=== PATIENT | male | born 1945 | race Caucasian/White ===

== ENCOUNTER 2017-07-31 20:04 | Emergency (ER) | payer OTHER, BC ==
--- NOTE | 2017-07-31 20:13 | PDOC ---
History of Present Illness - General History Source: Patient Exam Limitations: No Limitations - History of Present Illness Initial Comments: 07/31/17 21:01 The patient is a 71 year old male with no significant PMH who presents to the emergency department with severe back pain for 1 day. The patient reports that he was concerned for blood clot in his back because he had a PE in his eye 2 years ago . He states that he is therapeutic on his coumadin. The patient reports that he went for a walk last night and went home where he reached for something and sat down the patient reports that he felt an onset of pain in his back. The patient reports that he took tylenol for pain with no apparent relief. The patient also reports trying other pain relieving methods with no relief. The patient denies chest pain, shortness of breath, headache and dizziness. He fever, chills, nausea, vomit, diarrhea, constipation or urinary symptoms. The patient denies any other complaints. PAST MEDICAL HISTORY: PE in eye (2 years ago) PAST SURGICAL HISTORY: no significant history FAMILY HISTORY: no pertinent history SOCIAL HISTORY: Pt lives with family and is employed. MEDICATIONS: reviewed ALLERGIES: As per nursing notes General: No fevers or chills, no weakness, no weight loss HEENT: No change in vision. No sore throat,. No ear pain CardioVascular: No chest pain or shortness of breath Respiratory:No cough, or wheezing. Gastrointestinal: no nausea, vomiting, diarrhea or constipation, No rectal bleeding Genitourinary: No dysuria, hematuria, or frequency Musculoskeletal: (+)severe back pain, No joint pain or swelling Neurologic: No headache, vertigo, dizziness or loss of consciousness Psychiatric: nor depression Skin: No rashes or easy bruising Endocrine: no increased thirst or abnormal weight change Allergic: no skin or latex allergy All other systems reviewed and normal General: Well-nourished well-developed individual, no acute distress HEENT: Throat: Normal, tonsils normal, no erythema or exudate Neck: Supple, no meningeal signs, no lymphadenopathy Eyes::Pupils equal reactive and round, extraocular motion intact Chest: Nontender to palpation Cardiac: S1-S2 normal, regular rate and rhythm, no murmurs rubs or gallops Respiratory: (+)decreased breath sounds due to pain with respiration.Lungs clear to auscultation bilateral Abdomen: Soft, nondistended, normal bowel sounds, nontender to palpation diffusely Extremities: (+)pain reproduced on palpation and movement. Warm, dry, no cyanosis, clubbing, or edema Skin: No rashes Neuro: Alert and oriented x3, nonfocal exam, grossly intact, normal gait Psych: Normal mood and affect <Amada Caal - Last Filed: 07/31/17 21:01> - General History Source: Patient Exam Limitations: No Limitations - History of Present Illness Initial Comments: A portion of this note was documented by scribe services under my direction. I have reviewed the details of the note, within reason, and agree with the documentation. The case summary and management plan written by me. Assessment and plan: This is 71-year-old male who has a history of hypercoagulability who is on home and that is therapeutic as of yesterday. Patient comes in complaining of pleuritic type chest pain. Patient said it began when he stretched to call an object toward him and he felt instant onset of the pain. Patient said it is worse with respiration worse with movement and worse with using those muscles. This most likely is skeletal muscular however will get a d-dimer to rule out PE. D-dimer was less than 200 which is normal Patient given Percocet for the pain. Patient discharged home will follow-up with his primary care doctor. <Dino Bryant I - Last Filed: 07/31/17 21:54> - General Chief Complaint: Pain, Acute Stated Complaint: RIGHT UPPER BACK PAIN Time Seen by Provider: 07/31/17 20:12 Past History <Amada Caal - Last Filed: 07/31/17 21:01> - Immunization History Immunization Up to Date: Yes - Suicide/Smoking/Psychosocial Hx Smoking History: Never smoked Have you smoked in the past 12 months: No Hx Alcohol Use: No Drug/Substance Use Hx: No Substance Use Type: None <Dino Bryant I - Last Filed: 07/31/17 21:54> - Past Medical History Allergies/Adverse Reactions: Allergies Allergy/AdvReac Type Severity Reaction Status Date / Time No Known Allergies Allergy Verified 03/27/15 23:28 Home Medications: Ambulatory Orders Diazepam [Valium] 5 mg PO Q8H 07/31/17 Metoprolol Tartrate [Lopressor -] 25 mg PO DAILY 07/31/17 Rosuvastatin Calcium [Crestor] 10 mg PO DAILY 07/31/17 Warfarin Sodium [Coumadin] 2 mg PO DAILY 07/31/17 *Physical Exam - Vital Signs Last Vital Signs Temp Pulse Resp BP Pulse Ox 98.5 F 70 18 136/95 96 07/31/17 20:22 07/31/17 20:22 07/31/17 20:22 07/31/17 20:22 07/31/17 20:22 <Amada Caal - Last Filed: 07/31/17 21:01> ED Treatment Course - LABORATORY CBC & Chemistry Diagram: 07/31/17 20:20 - ADDITIONAL ORDERS Additional order review: Laboratory Results 07/31/17 20:20 Sodium 135 L Potassium 4.2 Chloride 104 Carbon Dioxide 26 Anion Gap 5 L BUN 26 H Creatinine 1.3 Random Glucose 107 H Calcium 9.0 <Amada Caal - Last Filed: 07/31/17 21:01> - LABORATORY CBC & Chemistry Diagram: 07/31/17 20:20 <Dino Bryant I - Last Filed: 07/31/17 21:54> *DC/Admit/Observation/Transfer - Attestations Scribe Attestion: 07/31/17 21:01 Documentation prepared by Amada Cala, acting as medical and scientific illustrator for Dino Bryant MD. <Amada Caal - Last Filed: 07/31/17 21:01> - Discharge Dispostion Decision to Admit order: No <Dino Bryant I - Last Filed: 07/31/17 21:54> Diagnosis at time of Disposition: Upper back strain Qualifiers: Encounter type: initial encounter Qualified Code(s): S29.012A - Strain of muscle and tendon of back wall of thorax, initial encounter - Discharge Dispostion Disposition: HOME Condition at time of disposition: Stable - Referrals Referrals: John Martínez MD [Primary Care Provider] - - Patient Instructions Additional Instructions: For the pain get a lidocaine patch such as a salon possible that is over-the- counter and apply to the area in addition to taking the Tylenol. Return to the emergency department immediately with ANY new, persistent or worsening symptoms. Continue any medications as previously prescribed by your physician. You should follow up with your primary doctor as soon as possible regarding today's emergency department visit. . Please make sure your doctor reviews the results of your emergency evaluation. Thank you for coming to the Emergency Department today for your care. It was a pleasure to see you today. Please note that your evaluation is INCOMPLETE until you follow-up with your doctor. - Post Discharge Activity
[2017-07-31 20:28] VITALS: BP 136/95; PULSE 70; TEMP 98.5; BMI 30.4
[2017-07-31 20:47] LABS: ANION GAP 5 (8-16); BLOOD UREA NITROGEN 26 mg/dl (7-18); CHLORIDE 104 mmol/L (98-107); CO2 26 mmol/L (22-28); CREATININE 1.3 mg/dl (0.6-1.3); GLUCOSE,RANDOM 107 mg/dl (74-106); POTASSIUM 4.2 mmol/L (3.5-5.1); SODIUM 135 mmol/L (136-145)
== END 2017-07-31 21:57 | disposition home or self-care (01) ==
LOC: FER 20:04
DX: S29.012A Strain of muscle and tendon of back wall of thorax, initial encounter (principal); X58.XXXA Exposure to other specified factors, initial encounter; Y93.89 Activity, other specified; Y92.9 Unspecified place or not applicable; Z79.01 Long term (current) use of anticoagulants; Z86.711 Personal history of pulmonary embolism
CPT/HCPCS: 36415; 80048; 85379; 99281-25

== ENCOUNTER 2023-11-12 15:12 | Emergency (ER) | payer OTHER, BC ==
[2023-11-12 15:41] VITALS: BP 116/82; PULSE 64; RESP 18; TEMP 98.2; BMI 28.2
== END 2023-11-12 18:45 | disposition short-term general hospital (02) ==
LOC: FER 15:12
DX: H53.8 Other visual disturbances (principal)
CPT/HCPCS: 99285-25

== ENCOUNTER 2024-05-24 11:40 | Emergency (ER) | payer OTHER, BC ==
[2024-05-24 11:59] VITALS: BP 142/97; PULSE 74; RESP 18; TEMP 98.2; BMI 28.0
[2024-05-24 12:54] LABS: INR 2.3 (0.83-1.09); PROTHROMBIN TIME (PATIENT) 25.6 SEC (9.7-13.0)
[2024-05-24 12:55] LABS: ABSOLUTE IMMATURE GRANULOCYTES 0.01 x10^3/uL (0.0-0.031); HEMATOCRIT 38.9 % (40.1-51.0); HEMOGLOBIN 12.8 g/dL (13.7-17.5); MCHC 32.9 g/dl (32.3-36.5); MEAN CELL VOLUME 101.6 fl (79.0-92.2); MEAN PLT VOLUME 10.2 fl (9.4-12.4); MONOCYTE # 0.26 x10^3/uL (0.30-0.82); PLATELET COUNT # 125 x10^3/uL (163-337); RDW 13.7 % (12.2-16.6)
[2024-05-24 12:57] LABS: ACTIVATED PTT 48.2 SECONDS (25.2-36.5)
[2024-05-24 13:05] LABS: ALBUMIN 4.3 g/dl (3.4-5.0); BILIRUBIN,TOTAL 0.6 mg/dl (0.2-1); CALCIUM 9.4 mg/dl (8.5-10.1); CREATININE 1.3 mg/dl (0.6-1.3); POTASSIUM 4.3 mmol/L (3.5-5.1); TOT PROT 6.9 g/dl (6.4-8.2)
== END 2024-05-24 13:35 | disposition home or self-care (01) ==
LOC: FER 11:40
DX: R04.2 Hemoptysis (principal)
CPT/HCPCS: 0241U-QW; 36415; 80053; 85025; 85610; 85730; 99283-25